=== PATIENT | male | born 1970 | race Caucasian/White ===

== ENCOUNTER 2018-02-01 18:07 | Emergency (ER) | payer OTHER ==
[2018-02-01] MEDS: LORAZEPAM 2 MG INJ IV (20:27)
[2018-02-01] MEDS: SOD CHLORIDE 0.9% 1,000 ML IV (20:27)
[2018-02-01] MEDS: ONDANSETRON 4 MG INJ IV (20:27)
[2018-02-01 20:45] LABS: ADD MAN DIFF? NO
[2018-02-01 20:48] LABS: BASOPHILS % 0.3 % (0.0-2.0); EOSINOPHILS % 0.4 % (0.0-7.0); HEMATOCRIT 45.7 % (42.0-52.0); HEMOGLOBIN 15.5 g/dl (14.0-18.0); LYMPHOCYTES # 2.2 10^3/ul (0.8-2.9); LYMPHOCYTES % 22.4 % (15.0-51.0); MEAN CORPUSCULAR HEMOGLOBIN 31.3 pg (29.0-33.0); MEAN CORPUSCULAR HGB CONC 33.9 g/dl (32.0-37.0); MEAN CORPUSCULAR VOLUME 92.1 fl (82.0-101.0); MEAN PLATELET VOLUME 9.5 fl (7.4-10.4); MONOCYTE # 0.8 10^3/ul (0.3-0.9); MONOCYTES % 8.2 % (0.0-11.0); NEUTROPHIL # 6.7 10^3/ul (1.6-7.5); NEUTROPHILS % 68.4 % (39.0-77.0); PLATELET COUNT 281 10^3/UL (140-415); RED BLOOD COUNT 4.96 10^6/ul (4.70-6.10); RED CELL DISTRIBUTION WIDTH 14.3 % (11.5-14.5)
[2018-02-01 20:48] LABS: WHITE BLOOD COUNT 9.7 10^3/ul (4.8-10.8)
[2018-02-01 20:54] LABS: ADD UMIC YES; UR ASCORBIC ACID NEGATIVE (NEGATIVE); UR BILIRUBIN (Dip) NEGATIVE (NEGATIVE); UR BLOOD (Dip) NEGATIVE (NEGATIVE); UR CLARITY SLIGHTLY CLOUDY (CLEAR); UR COLOR YELLOW (YELLOW); UR GLUCOSE (Dip) NEGATIVE (NEGATIVE); UR KETONES (Dip) 1+ mg/dL (NEGATIVE); UR LEUKOCYTE ESTERASE (Dip) NEGATIVE Leu/ul (NEGATIVE); UR MUCUS MANY /HPF (NONE SEEN); UR NITRITE (Dip) NEGATIVE (NEGATIVE); UR RBC 2 /HPF (0-5); UR TOTAL PROTEIN (Dip) 1+ mg/dl (NEGATIVE); UR UROBILINOGEN (Dip) 1+ mg/dL (NEGATIVE); UR WBC 0 /HPF (0-5)
[2018-02-01 21:07] LABS: ALANINE AMINOTRANSFERASE 37 IU/L (13-69); ALBUMIN 4.6 g/dl (3.3-4.9); ALBUMIN/GLOBULIN RATIO 1.21; ALKALINE PHOSPHATASE 78 IU/L (42-121); ANION GAP 15 (8-16); ASPARTATE AMINO TRANSFERASE 33 IU/L (15-46); BILIRUBIN,INDIRECT 1.6 mg/dl (0-1.1); BILIRUBIN,TOTAL 1.6 mg/dl (0.2-1.3); BLOOD UREA NITROGEN 15 mg/dl (7-20); CALCIUM 9.4 mg/dl (8.4-10.2); CARBON DIOXIDE 26 mmol/L (21-31); CHLORIDE 102 mmol/L (97-110); CREATININE 0.93 mg/dl (0.61-1.24); GLUCOSE 97 mg/dl (70-220); LIPASE 87 U/L (23-300); POTASSIUM 3.6 mmol/L (3.5-5.1); SODIUM 139 mmol/L (135-144); TOTAL PROTEIN 8.4 g/dl (6.1-8.1)
[2018-02-01 21:18] LABS: TROPONIN-I < 0.012 ng/ml (0.000-0.120)
== END 2018-02-01 22:11 | disposition home or self-care (01) ==
LOC: FTE 18:07
DX: R10.13 Epigastric pain (principal); F10.10 Alcohol abuse, uncomplicated; R11.10 Vomiting, unspecified
CPT/HCPCS: 36415; 80053; 81001; 83690; 84484; 85025; 93005; 96361; 96374; 96375; 99284-25

== ENCOUNTER 2018-03-21 07:33 | Day surgery (SDC) | payer OTHER ==
[2018-03-21] MEDS ORDERED: PROPOFOL 20 ML (11:00)
[2018-03-21] MEDS ORDERED: HYDROmorphONE 1 MG/5 ML IV SYRINGE IV ×3 (11:00)
[2018-03-21] MEDS ORDERED: METOCLOPRAMIDE 10 MG INJ IV (11:00)
[2018-03-21] MEDS ORDERED: LABETALOL HCL 20MG INJ IV (11:00)
[2018-03-21] MEDS ORDERED: CEFAZOLIN 1 GM/50 ML (PMX) 50 ML IVPB (11:00)
[2018-03-21] MEDS ORDERED: EPHEDrine SULFATE 50 MG/5 ML SYG IV (11:00)
[2018-03-21] MEDS ORDERED: SOD CHLORIDE 0.9% 1,000 ML IV (11:00)
[2018-03-21] MEDS ORDERED: ROCURONIUM 50 MG INJ (11:00)
[2018-03-21] MEDS ORDERED: OXYCODONE/ACETAMINOPHEN (5/325) TAB PO (11:00)
[2018-03-21] MEDS ORDERED: FENTAnyl 50 MCG/ML VIAL IV ×3 (11:00)
[2018-03-21] MEDS ORDERED: MEPERIDINE 25 MG INJ IV (11:00)
[2018-03-21] MEDS ORDERED: DIPHENHYDRAMINE 50 MG INJ IV (11:00)
[2018-03-21] MEDS ORDERED: CEFAZOLIN 1 GM INJ (11:00)
[2018-03-21] MEDS ORDERED: ONDANSETRON 4 MG INJ IV (11:00)
[2018-03-21] MEDS ORDERED: ROPIVACAINE 0.5 % 30 ML VIAL (11:01)
[2018-03-21] MEDS ORDERED: FENTAnyl 50 MCG/ML VIAL ×2 (11:01→11:28)
[2018-03-21] MEDS ORDERED: MIDAZOLAM 1 MG/ML 2 ML INJ (11:01)
[2018-03-21] MEDS ORDERED: DEXAMETHASONE 4 MG/ML 1 ML INJ (11:24)
[2018-03-21] MEDS ORDERED: KETOROLAC 30 MG INJ (11:24)
[2018-03-21] MEDS ORDERED: ONDANSETRON 4 MG INJ (11:24)
[2018-03-21] MEDS ORDERED: METOCLOPRAMIDE 10 MG INJ (11:24)
[2018-03-21] MEDS: BUPIVACAINE 0.25% (MPF) 30 ML INJ (11:31)
[2018-03-21] MEDS: POLYMYXIN/BACITRACIN 1L IRRIG IRR (11:32)
[2018-03-21] MEDS ORDERED: GLYCOPYRROLATE 0.4 MG INJ (11:53)
[2018-03-21] MEDS ORDERED: NEOSTIGMINE 3 MG/3 ML SYRINGE (11:53)
[2018-03-21] MEDS ORDERED: HYDROCODONE/APAP (5/325) TAB PO (12:00)
[2018-03-21] MEDS ORDERED: POLYMYXIN/BACITRACIN 1L IRRIG (12:06)
== END 2018-03-21 14:23 | disposition home or self-care (01) ==
LOC: SDS 07:33
DX: K40.30 Unilateral inguinal hernia, with obstruction, without gangrene, not specified as recurrent (principal)
CPT/HCPCS: 49507

== ENCOUNTER 2018-03-30 13:38 | Inpatient (IN) | payer OTHER ==
[2018-03-30 14:38] LABS: ADD MAN DIFF? NO
[2018-03-30 14:45] LABS: WHITE BLOOD COUNT 9.7 10^3/ul (4.8-10.8)
[2018-03-30 14:45] LABS: BASOPHILS % 0.4 % (0.0-2.0); EOSINOPHILS # 0.2 10^3/ul (0.0-0.5); EOSINOPHILS % 2.1 % (0.0-7.0); HEMATOCRIT 38.9 % (42.0-52.0); HEMOGLOBIN 13.1 g/dl (14.0-18.0); LYMPHOCYTES # 1.8 10^3/ul (0.8-2.9); LYMPHOCYTES % 19.1 % (15.0-51.0); MEAN CORPUSCULAR HEMOGLOBIN 31.8 pg (29.0-33.0); MEAN CORPUSCULAR HGB CONC 33.7 g/dl (32.0-37.0); MEAN CORPUSCULAR VOLUME 94.4 fl (82.0-101.0); MEAN PLATELET VOLUME 8.6 fl (7.4-10.4); MONOCYTES % 10.7 % (0.0-11.0); NEUTROPHIL # 6.5 10^3/ul (1.6-7.5); NEUTROPHILS % 67.1 % (39.0-77.0); PLATELET COUNT 546 10^3/UL (140-415); RED BLOOD COUNT 4.12 10^6/ul (4.70-6.10); RED CELL DISTRIBUTION WIDTH 13.3 % (11.5-14.5)
[2018-03-30 15:03] LABS: ANION GAP 9 (5-13); BLOOD UREA NITROGEN 13 mg/dl (7-20); CALCIUM 9.1 mg/dl (8.4-10.2); CARBON DIOXIDE 27 mmol/L (21-31); CHLORIDE 101 mmol/L (97-110); Estimated GFR > 60 mL/min (>60); GLUCOSE 102 mg/dl (70-220); POTASSIUM 4.6 mmol/L (3.5-5.1); SODIUM 137 mmol/L (135-144)
[2018-03-30] MEDS: morphine 4 MG/ML VIAL IV (16:12)
[2018-03-30] MEDS: SOD CHLORIDE 0.9% 100 ML (16:16)
[2018-03-30] MEDS: IOHEXOL 300MG/ML 150 ML BTL (16:17)
[2018-03-30] MEDS ORDERED: ONDANSETRON 4 MG INJ IV (17:30)
[2018-03-30] MEDS ORDERED: ACETAMINOPHEN 325 MG TAB PO ×2 (17:30→18:30)
[2018-03-30] MEDS ORDERED: DOCUSATE SODIUM 100 MG CAP PO (18:30)
[2018-03-30] MEDS ORDERED: NACL 0.9% 3 ML SYG IV (18:30)
[2018-03-30] MEDS: morphine 2 MG INJ IV (20:13)
[2018-03-31 05:51] LABS: ADD MAN DIFF? NO
[2018-03-31 05:58] LABS: WHITE BLOOD COUNT 9.9 10^3/ul (4.8-10.8)
[2018-03-31 05:58] LABS: BASOPHIL # 0.1 10^3/ul (0.0-0.1); BASOPHILS % 0.5 % (0.0-2.0); EOSINOPHILS # 0.2 10^3/ul (0.0-0.5); EOSINOPHILS % 2.4 % (0.0-7.0); HEMATOCRIT 37.2 % (42.0-52.0); HEMOGLOBIN 12.5 g/dl (14.0-18.0); LYMPHOCYTES # 2.3 10^3/ul (0.8-2.9); LYMPHOCYTES % 22.9 % (15.0-51.0); MEAN CORPUSCULAR HEMOGLOBIN 31.6 pg (29.0-33.0); MEAN CORPUSCULAR HGB CONC 33.6 g/dl (32.0-37.0); MEAN CORPUSCULAR VOLUME 94.2 fl (82.0-101.0); MEAN PLATELET VOLUME 8.7 fl (7.4-10.4); MONOCYTE # 0.9 10^3/ul (0.3-0.9); MONOCYTES % 8.6 % (0.0-11.0); NEUTROPHIL # 6.4 10^3/ul (1.6-7.5); NEUTROPHILS % 64.9 % (39.0-77.0); PLATELET COUNT 575 10^3/UL (140-415); RED BLOOD COUNT 3.95 10^6/ul (4.70-6.10); RED CELL DISTRIBUTION WIDTH 13.4 % (11.5-14.5)
[2018-03-31 06:26] LABS: ANION GAP 10 (5-13); BLOOD UREA NITROGEN 14 mg/dl (7-20); CALCIUM 8.9 mg/dl (8.4-10.2); CARBON DIOXIDE 30 mmol/L (21-31); CHLORIDE 99 mmol/L (97-110); CREATININE 1.02 mg/dl (0.61-1.24); Estimated GFR > 60 mL/min (>60); GLUCOSE 97 mg/dl (70-220); MAGNESIUM 2.4 mg/dl (1.7-2.5); PHOSPHORUS 4.2 mg/dl (2.5-4.9); POTASSIUM 4.5 mmol/L (3.5-5.1); SODIUM 139 mmol/L (135-144)
[2018-03-31] MEDS: PANTOPRAZOLE (EC) 40 MG TAB PO (06:26)
[2018-03-31 07:02] LABS: HEMOGLOBIN A1C 5.1 % (0-5.9)
[2018-03-31] MEDS: HYDROCODONE/APAP (5/325) TAB PO (12:00)
[2018-03-31] MEDS: SOD CHLORIDE 0.45% 1,000 ML IV (23:33)
[2018-04-01] MEDS: PANTOPRAZOLE (EC) 40 MG TAB PO (05:13)
[2018-04-01] MEDS: SOD CHLORIDE 0.45% 1,000 ML IV ×2 (09:13→18:54)
[2018-04-01] MEDS: morphine 2 MG INJ IV ×2 (11:34→20:19)
[2018-04-01] MEDS ORDERED: MIDAZOLAM 1 MG/ML 2 ML INJ (16:31)
[2018-04-01] MEDS ORDERED: FENTAnyl 50 MCG/ML VIAL ×2 (16:31→16:59)
[2018-04-01] MEDS ORDERED: CEFAZOLIN 1 GM INJ (17:23)
[2018-04-01] MEDS ORDERED: PROPOFOL 20 ML (17:23)
[2018-04-01] MEDS ORDERED: LIDOCAINE 2% (SDV) 5 ML INJ (17:23)
[2018-04-01] MEDS ORDERED: ONDANSETRON 4 MG INJ (17:24)
[2018-04-01] MEDS: BUPIVACAINE 0.25% (MPF) 30 ML INJ (17:39)
[2018-04-01] MEDS ORDERED: HYDROmorphONE 1 MG/5 ML IV SYRINGE IV (17:41)
[2018-04-01] MEDS ORDERED: MEPERIDINE 25 MG INJ (17:45)
[2018-04-01] MEDS: HYDROmorphONE 1 MG/5 ML IV SYRINGE IV ×3 (17:46→18:28)
[2018-04-01] MEDS: MEPERIDINE 25 MG INJ IV (17:46)
[2018-04-01] MEDS ORDERED: METOCLOPRAMIDE 10 MG INJ IV (18:00)
[2018-04-01] MEDS ORDERED: DIPHENHYDRAMINE 50 MG INJ IV (18:00)
[2018-04-01] MEDS ORDERED: FENTAnyl 50 MCG/ML VIAL IV (18:00)
[2018-04-01] MEDS ORDERED: ONDANSETRON 4 MG INJ IV (18:00)
[2018-04-01] MEDS: ONDANSETRON 4 MG INJ IV (19:01)
[2018-04-02] MEDS: ZOLPIDEM 5 MG TAB PO (00:21)
[2018-04-02] MEDS: morphine 2 MG INJ IV ×3 (02:05→09:07)
[2018-04-02] MEDS: SOD CHLORIDE 0.45% 1,000 ML IV (05:30)
[2018-04-02] MEDS: PANTOPRAZOLE (EC) 40 MG TAB PO (05:30)
[2018-04-02] MEDS: HYDROCODONE/APAP (5/325) TAB PO (05:40)
== END 2018-04-02 15:49 | disposition home or self-care (01) | DRG 905 ==
LOC: E/R 13:38 → PP2 17:41
PROC: 0Y960ZZ Drainage of Left Inguinal Region, Open Approach (ICD-10-PCS; principal; 2018-04-01 15:30)
PROC: 0HX9XZZ Transfer Perineum Skin, External Approach (ICD-10-PCS; 2018-04-01 15:30)
PROC: 0VB70ZZ Excision of Left Tunica Vaginalis, Open Approach (ICD-10-PCS; 2018-04-01 15:30)
DX: N99.840 Postprocedural hematoma of a genitourinary system organ or structure following a genitourinary system procedure (principal); N43.3 Hydrocele, unspecified; I10 Essential (primary) hypertension; E78.5 Hyperlipidemia, unspecified
CPT/HCPCS: 36415; 74177; 80048; 83036; 83735; 84100; 85025; 88304; 96374; 99285-25; G0378